=== PATIENT | male | born 1940 | race Caucasian/White ===

== ENCOUNTER 2021-01-25 16:13 | Outpatient (RCR) | payer MEDICARE, BC ==
[2020-11-23 16:51] VITALS: BP 144/90
--- NOTE | 2020-11-23 16:52 | NUR ---
PEGFILGRASTIM 6MG INJ IN RIGHT UPPER ARM SQ. PATRICIO WELL. NO SXS OF REACTION.
[2020-12-14 16:00] VITALS: BP 149/80
[2021-01-04 16:05] VITALS: BP 154/80
[~2021-01-25] VITALS: Ht 172.7 cm; Wt 104.1 kg
[~2021-01-25 16:13] MED LIST: CALCIUM 600 +1 EAC2 PO; CLARITIN LIQUI-10 MG PO; ESCITALOPRAM20 MG PO; FARXIGA5 MG PO; FLOMAX0.4 MG PO; KLONOPIN 1MG1 MG PO; LUPRON DEPOT30 M1 IM; MELATIN3 MG PO; METFORMIN HCL500 M2 PO; NATURAL IRON65 MG PO; PREDNISONE1 MG PO; SIMVASTATIN20 M1 PO; ZOFRAN4 M2 PO
[2021-01-25 16:17] VITALS: BP 154/90
[2021-03-22] MEDS ORDERED: LASIX40 M1 PO (16:46)
[2021-03-22] MEDS ORDERED: ZANAFLEX2 M2 PO (16:47)
== END 2021-02-21 | disposition home or self-care (01) ==
LOC: AMSURD
DX: C61 Malignant neoplasm of prostate (principal)
CPT/HCPCS: Q5120

== ENCOUNTER 2021-05-03 15:51 | Outpatient (RCR) | payer MEDICARE, BC ==
[2021-03-22 16:48] VITALS: BP 156/74
[2021-04-12 16:10] VITALS: BP 145/80
[~2021-05-03] VITALS: Ht 172.7 cm; Wt 104.1 kg
[~2021-05-03 15:51] MED LIST changes: +LASIX40 M1 PO; +ZANAFLEX2 M2 PO
[2021-05-03 16:19] VITALS: BP 124/62
== END 2021-05-03 17:00 | disposition home or self-care (01) ==
LOC: AMSURD 15:51
DX: C61 Malignant neoplasm of prostate (principal)
CPT/HCPCS: Q5108-TB; Q5120